=== PATIENT | female | born 1945 | race Caucasian/White ===

== ENCOUNTER 2024-08-01 13:03 | Emergency (ER) | payer OTHER, MEDICAID, SELFPAY ==
[2024-08-01 13:18] VITALS: BP 118/56; PULSE 84; RESP 18; TEMP 36.3; O2SAT 98
--- NOTE | 2024-08-01 13:46 | PD.EDRME ---
Rapid Medical Screening Exam RME Arrival date/time: 08/01/24 13:03 79yo f with c/o of ankle/hand swelling and pain, no trauma I have greeted and performed a focused initial assessment of this patient. A comprehensive ED assessment and evaluation of the patient, analysis of all test results, and completion of the medical decision making process will be conducted by additional ED providers. Chief Complaint: General Adult/Misc Complain Time Seen by Provider: 08/01/24 13:22 Vital signs: Vital Signs Temperature 97.4 F 08/01/24 13:18 Pulse Rate 84 08/01/24 13:18 Respiratory Rate 18 08/01/24 13:18 Blood Pressure 118/56 L 08/01/24 13:18 Pulse Oximetry (%) 98 08/01/24 13:18 Oxygen Delivery Method Room Air 08/01/24 13:18
--- NOTE | 2024-08-01 13:47 | XR_ITS ---
EXAMINATION: Ankle, right INDICATION: Trauma . Technique: Ankle AP, oblique, lateral 3 views Date and time of exam: 08/01/2024, 1:55 PM COMPARISON: None FINDINGS: No evidence of fracture or dislocation. Minimal degenerative changes in the tibiotalar joint. Small enthesophyte at Achilles tendon insertion site No evidence of soft tissue abnormality or foreign body. IMPRESSION: No acute bony abnormality. Mild degenerative changes as above.
[2024-08-01 14:15] LABS: Basophils % (Auto) 0 % (0-2.5); Eosinophils # (Auto) 0.4 Thou/mm3 (0.0-0.5); Eosinophils % (Auto) 7 % (0-10); Hematocrit 30.6 % (36.0-46.0); Hemoglobin 9.2 g/dL (12.0-16.0); Immature Granulocytes % (Auto) 0 % (0-0); Lymphocytes % (Auto) 54 % (10-50); Mean Corpuscular HGB Conc 30.1 g/dl (31.0-37.0); Mean Corpuscular Hemoglobin 21.3 pg (25.0-35.0); Mean Corpuscular Volume 71 fL (80-100); Monocytes # (Auto) 0.6 Thou/mm3 (0.0-0.8); Monocytes % (Auto) 11 % (0-12); Neutrophils # (Auto) 1.6 Thou/mm3 (1.8-7.7); Neutrophils % (Auto) 29 % (37-80); Nucleated Red Blood Cell % 0 /100 WBC (0); Platelet Count 307 Thou/mm3 (140-440); RDW Standard Deviation 44.7 fL (36.4-46.3); Red Blood Count 4.32 Miln/mm3 (4.00-5.20); White Blood Count 5.5 Thou/mm3 (3.6-11.0)
[2024-08-01 14:30] LABS: Alanine Aminotransferase 23 U/L (10-49); Albumin, Serum 3.7 gm/dL (3.4-4.8); Albumin/Globulin Ratio 1.6 (1.2-2.2); Alkaline Phosphatase 92 U/L (46-116); Anion Gap 9 (7-16); Aspartate Amino Transferase 14 U/L (0-34); BUN/Creatinine Ratio 17 Ratio (12-20); Bilirubin,Total 0.2 mg/dL (0.3-1.2); Blood Urea Nitrogen 12 mg/dL (9-23); C-Reactive Protein 1.7 mg/dL (0.0-0.9); Calcium 8.5 mg/dL (8.3-10.6); Calcium (Corrected) 8.7 mg/dL (8.5-10.1); Carbon Dioxide 23.9 mMol/L (20.0-31.0); Chloride 110 mMol/L (98-107); Creatinine (Component) 0.7 mg/dL (0.6-1.3); Globulin 2.3 gm/dL (2.3-3.5); Glucose 110 mg/dL (74-106); Osmolality,Calculated 285 (275-295); Potassium 3.8 mMol/L (3.4-5.1); Sodium 143 mMol/L (136-145); Uric Acid 3.6 mg/dL (3.1-7.8); eGFR > 60 See Note
[2024-08-01 14:41] LABS: Sed Rate (ESR) 36 mm/hr (0-30)
--- NOTE | 2024-08-01 16:03 | PC.NURSE ---
no answer x 1 at 1604
[2024-08-01] MEDS: MELOXICAM 7.5 MG TABLET PO (16:36)
--- NOTE | 2024-08-01 17:36 | PD.EDADULT ---
ED General RME/HPI General Chief complaint: General Adult/Misc Complain Stated complaint: SWOLLEN RIGHT HAND AND FOOT Time Seen by Provider: 08/01/24 13:22 Arrival date/time: 08/01/24 13:03 79 year old female present to emergency room with c/o of lower leg edema and hand swelling for a few days. pt report possible irriation from bug spray. LOCATION: leg/hands SEVERITY: Symptoms are described as being severe with limitations on activities of daily living QUALITY: Symptoms are described as being dull or achy CONTEXT: none DURATION/TIMING: The symptoms started approximately 2 days ago and have been constant this then. ASSOCIATED SYMPTOMS: The patient is unable to identify any other associated symptoms. MODIFYING FACTORS: The patient is unable to identify any alleviating or aggravating symptoms. PERTINENT ROS: no fevers, no headache, no neck or chest pain, no unexplained nausea or vomiting, no focal neurological deficits REVIEW OF SYSTEMS: See History of Present Illness - with the exception of those mentioned in the history of present illness, all other systems reviewed and reported as negative GENERAL: In general the patient is awake, interactive, in an emergency department gurney. HEAD/EYES/EARS/NOSE/THROAT: normo-cephalic, atraumatic, mucus membranes are moist, anicteric, palpebral conjunctiva is pink, trachea is midline. CARDIOVASCULAR: regular rate and regular rhythm, no murmurs, heart sounds are not distant, strong pulses in all four extremities that are equal and symmetric bilateral upper and lower extremities, normal capillary refill. CHEST/PULMONARY: normal chest rise and fall, good air movement, clear to auscultation bilaterally, normal inspiratory to expiratory ratios without evidence of respiratory distress. NECK: No midline/Paraspinal tenderness, no step off ROM/Strenght intact No Kernig and bruzinski sign. No trauma ABDOMEN: soft, not tender, no masses appreciated BACK: normal range of motion without pain. NEUROLOGICAL: cranio-facial features are symmetric, moves all four extremities equally without obvious limitations or weakness. EXTREMITY: no tenderness to palpation over the long bones or large joints of the bilateral upper and lower extremities, no joint swelling, no joint erythema, no signs of trauma, no unilateral leg swelling and no peripheral edema. SKIN: warm, dry, well-perfused, no jaundice, no rash, no telangiectasias or petechia. PSYCH: calm, cooperative, no evidence of psychosis or agitation RME / HPI RME / HPI narrative: 08/01/24 13:03 79yo f with c/o of ankle/hand swelling and pain, no trauma I have greeted and performed a focused initial assessment of this patient. A comprehensive ED assessment and evaluation of the patient, analysis of all test results, and completion of the medical decision making process will be conducted by additional ED providers. Related Data Allergies Allergy/AdvReac Type Severity Reaction Status Date / Time NKA* Allergy Uncoded 08/01/24 13:07 Course Course Course Narrative: Patient presenting with extremities swelling.? Also considered cellulitis, abscess, lymphedema, superficial thrombophlebitis, irritant dermatitis, oa however these were not consistent with presentation. pt decline US however denies any hx of dvt/pe/ This finding was discussed with the patient.? At this time, most likely diagnosis is edema extremities, denies any pain Symptomatic care was discussed.? I advised elevation above the heart.? An Bernardo wrap was applied.?? I have instructed the patient to return to the ER at any time if there are any new or worsening symptoms including uncontrolled pain, fever, shortness of breath, chest pain.? The patient expressed understanding of and agreement with this plan.? Opportunity was given for questions prior to discharge and all stated questions were answered to the patient's satisfaction.? Home care instructions provided.? Patient remained hemodynamically stable through ED course and was discharged home without event.? Quality Measures none Orders Category Date Time Status XR ankle comp RT min 3V Stat Exams 08/01/24 13:47 Completed CBC Stat Lab 08/01/24 13:55 Completed CMP [Comprehensive Metabolic Panel] Stat Lab 08/01/24 13:55 Completed CRP [C-Reactive Protein] Stat Lab 08/01/24 13:55 Completed ESR [Sed Rate (ESR)] Stat Lab 08/01/24 13:55 Completed Uric Acid Stat Lab 08/01/24 13:55 Completed Meloxicam [Mobic] Med 08/01/24 15:59 Discontinued 7.5 mg PO X1 ONE Vital Signs Vital signs: Vital Signs Temperature 97.4 F 08/01/24 13:18 Pulse Rate 84 08/01/24 13:18 Respiratory Rate 18 08/01/24 13:18 Blood Pressure 118/56 L 08/01/24 13:18 Pulse Oximetry (%) 98 08/01/24 13:18 Oxygen Delivery Method Room Air 08/01/24 13:18 [facility] Patient data External records reviewed:: None Clinical information provided by:: patient Social determinants that could affect healthcare access:: none Patient has the following chronic illnesses:: as stated in chart How is presenting disease/condition affected by chronic disease/condition?: uneffected by Evaluation data The following diagnostics were reviewed and interpreted by me:: lab results and radiology exam(s) Lab and/or radiology exams considered but not ordered:: n/a Interpretation Summary: cbc/cmp no acute findings crp/esr elevated uric acid wnl Medications Medications considered but not ordered:: n/a Medication administrations:: Medication Administration History Discontinued Medications Meloxicam (Meloxicam 7.5 Mg Tablet) 7.5 mg PO X1 ONE Stop: 08/01/24 16:00 Last Admin: 08/01/24 16:36 Dose: 7.5 mg Documented By: KF as state above Consultations Consultation(s) initiated? (list below): No Diagnosis Differential Diagnosis ED Complaint MDM: gout, oa, kidney injury, fracture , dvt Most likely diagnosis given after review of the tests above:: extremities swelling Admission Indicated Admission indicated?: not indicated Explain why admission is indicated or not indicated:: not Admission Request Was there a request for admission?: No Disposition Plan Disposition Plan: Discharge Discharge Attestation Discharge Attestation: The patient and all family members were given an opportunity to ask questions and understood the discharge instructions. Discharge instructions specifically effects, indications for sooner follow up or return to the emergency department, and the expected course of current diagnosis. Patient condition: Stable Medical Decision Making Differential Diagnosis Differential Diagnosis: gout, oa, kidney injury, fracture , dvt Lab Data 08/01/24 13:55 08/01/24 13:55 Labs: Lab Results 08/01/24 Range/Units 13:55 WBC 5.5 (3.6-11.0) Thou/mm3 RBC 4.32 (4.00-5.20) Miln/mm3 Hgb 9.2 L (12.0-16.0) g/dL Hct 30.6 L (36.0-46.0) % MCV 71 L (80-100) fL MCH 21.3 L (25.0-35.0) pg MCHC 30.1 L (31.0-37.0) g/dl RDW Std Deviation 44.7 (36.4-46.3) fL Plt Count 307 (140-440) Thou/mm3 Neut % (Auto) 29 L (37-80) % Lymph % (Auto) 54 H (10-50) % [place] % (Auto) 11 (0-12) % Eos % (Auto) 7 (0-10) % Baso % (Auto) 0 (0-2.5) % Neut # (Auto) 1.6 L (1.8-7.7) Thou/mm3 Lymph # (Auto) 3.0 (1.0-4.8) Thou/mm3 [place] # (Auto) 0.6 (0.0-0.8) Thou/mm3 Eos # (Auto) 0.4 (0.0-0.5) Thou/mm3 Baso # (Auto) 0.0 (0.0-0.2) Thou/mm3 Immature Gran # (Auto) 0.00 (0.00-0.00) Thou/mm3 Absolute Nucleated RBC 0.00 (0.00-0.00) Thou/mm3 Immature Gran % 0 (0-0) % Nucleated RBC % 0 (0) /100 WBC ESR 36 H (0-30) mm/hr Sodium 143 (136-145) mMol/L Potassium 3.8 (3.4-5.1) mMol/L Chloride 110 H (98-107) mMol/L Carbon Dioxide 23.9 (20.0-31.0) mMol/L Anion Gap 9 (7-16) BUN 12 (9-23) mg/dL Creatinine 0.7 (0.6-1.3) mg/dL Estim Creat Clear Calc Not Performed. eGFR > 60 (60 - ) See Note BUN/Creatinine Ratio 17 (12-20) Ratio Glucose 110 H (74-106) mg/dL Calculated Osmolality 285 (275-295) Uric Acid 3.6 (3.1-7.8) mg/dL Calcium 8.5 (8.3-10.6) mg/dL Corrected Calcium 8.7 (8.5-10.1) mg/dL Total Bilirubin 0.2 L (0.3-1.2) mg/dL AST 14 (0-34) U/L ALT 23 (10-49) U/L Alkaline Phosphatase 92 (46-116) U/L C-Reactive Prot, Quant 1.7 H (0.0-0.9) mg/dL Total Protein 6.0 (5.7-8.2) gm/dL Albumin 3.7 (3.4-4.8) gm/dL Globulin 2.3 (2.3-3.5) gm/dL Albumin/Globulin Ratio 1.6 (1.2-2.2) Discharge Plan Plan Patient Disposition: HOME (Self Care) Health Concerns: Follow up with PCP as directed Return to ED if symptoms worsen Prescriptions/Referrals Referrals: Sg Mosquera MD [Primary Care Provider] - In 1 week Problem List Clinical Impression: Edema of extremities Patient/Caregiver Discharge Instructions Education Materials: ED Leg Swelling in Both Legs Print Language: Italian Stand Alone Forms: [employer] Award Info., Patient Portal Info Letter
== END 2024-08-01 18:30 | disposition home or self-care (01) ==
PROVIDERS: Physician Assistant; Emergency Provider Emergency Medicine; PCP Family Medicine
DX: R60.0 Localized edema (principal)
CPT/HCPCS: 36415; 73610; 80053; 84550; 85025; 85652; 86140; 99283; A9270

== ENCOUNTER 2025-01-07 05:32 | Emergency (ER) | payer OTHER, MEDICAID, SELFPAY ==
[2025-01-07] VITALS (12 sets, daily range): BP systolic 101–137; BP diastolic 56–83; PULSE 62–81; RESP 14–19; TEMP 36.6–37.2; O2SAT 97–100; BMI 19.5
--- NOTE | 2025-01-07 06:13 | XR_ITS ---
Examination: Venous duplex lower extremity sonogram, bilateral. Date and time of exam: January 07, 2025 0741 hours INDICATIONS: Right leg swelling and pain beginning 3 days ago. Technique: Multiple sonographic images of the deep venous system have been obtained. B-mode/2-D grayscale imaging of vascular structures and Doppler spectral analysis (waveforms) and color performed Both legs are examined. Findings: Deep venous systems do not demonstrate abnormal echogenicity. All visualized deep veins exhibit compressibility. All visualized deep veins exhibit augmentation. Impression: Negative for deep vein thrombosis
--- NOTE | 2025-01-07 06:16 | EDNOTE_ITS ---
<Statement entered by Lizzy Nathan MD - 01/08/25 15:29> I, Lizzy Nathan MD, have reviewed the history, exam, and assessment of the patient. I have evaluated the patient independently and agree with the plan of care documented by [ ]. All diagnostic studies were reviewed and discussed. I confirm the diagnosis as documented by the Resident. I was present during the Medical Decision Making for this patient. The patient's plan of care was created between myself and the Resident and consistent with our discussion of the patient's case. ED General RME/HPI General Chief complaint: Weakness Stated complaint: WEAKNESS Time Seen by Provider: 01/07/25 05:51 Arrival date/time: 01/07/25 05:32 RME / HPI RME / HPI narrative: 79-year-old female with history of rheumatoid arthritis comes into the ER brought in by ambulance due to severe weakness. Patient states that she has been feeling very weak for the past 3 months. She has been unable to get up from her bed last month and she called her nephew who was send his son to help her stand up. Today she had another episode where she could not get up from her bed as she was feeling too weak. She says that she has been losing weight and she is not able to take care of herself as she gets really tired with minimal exertion and minimal daily activities. She does not endorse any falls recently, syncopal episode, loss of conscious, chest pain, shortness of breath, nausea, vomiting, abdominal pain, change in bowel movement, or burning sensation urination. Otherwise she has no other complaints at this time. Related Data Allergies Allergy/AdvReac Type Severity Reaction Status Date / Time NKA* Allergy Uncoded 01/07/25 05:40 Review of Systems Review of Systems Systems Reviewed: All systems reviewed, normal except as documented Past Medical History Past Medical History Comments PMH COMMENT: PMH: Rheumatoid arthritis Social Hx: Denies smoking, drugs, alcohol Lives alone and has a granddaughter who lives in town and a nephew. ED Exam Narrative Physical exam: Gen: A&O X 3, thin and frail, temporal wasting HEENT: NCAT, EOMI, Pupils reactive COLLEEN, not icteric. External ears normal. No rhinorrhea. Dry mucous membranes. Neck: Supple, full range of motion, no observable masses, No meningeal sign. Lungs: No Respiratory distress, clear bilateral. CV: RRR, no murmurs. Abdomen: Soft, nondistended, No rebound tenderness. MSK: No joint swelling, no redness, peripheral pulses presents, right ankle and foot swollen and mildly warm and tender to palpation on the medial and lateral aspect of the posterior ankle. Strength bilateral upper and lower extremities are 3 out of 5. Skin: No rashes, petechiae, lesions. Neuro: No focal neurological deficits appreciated, sensory and motor intact. Psych: Cooperative, appropriate mood and effect. Course Quality Measures none Orders Category Date Time Status Hiv Counselor Q4H START 00 Care 01/07/25 06:15 Active Continuous Pulse Oximetry NOW Care 01/07/25 06:15 Completed EKG (ED ONLY) *Do not use* NOW Care 01/07/25 05:44 Completed Nurse Swallow Screen X1 Care 01/07/25 16:26 Active PT [Referral Physical Therapy] Stat Cons 01/07/25 09:38 Completed Diet Regular Diet 01/07/25 Dinner Active EKG (ED Only) Stat Exams 01/07/25 05:44 Ordered US venous doppler LE BI Stat Exams 01/07/25 06:13 Completed XR ankle RT 2V Stat Exams 01/07/25 06:22 Completed XR foot comp RT min 3V Stat Exams 01/07/25 06:21 Completed CBC Stat Lab 01/07/25 06:40 Completed CMP [Comprehensive Metabolic Panel] Stat Lab 01/07/25 06:40 Completed Drug Screen,Urine Stat Lab 01/07/25 06:39 Completed Lactic Acid [Lactate (Lactic Acid)] Stat Lab 01/07/25 06:40 Completed Procalcitonin Stat Lab 01/07/25 06:40 Completed UA [Urinalysis] Stat Lab 01/07/25 06:39 Completed Vital Signs Vital signs: Vital Signs Temperature 98.1 F 01/07/25 05:35 Pulse Rate 81 01/07/25 05:35 Respiratory Rate 17 01/07/25 05:35 Blood Pressure 117/67 01/07/25 05:35 Pulse Oximetry (%) 97 01/07/25 05:35 Oxygen Delivery Method Room Air 01/07/25 05:35 Discharge Plan Plan Patient Disposition: Xfer Skilled Nsg Fac (SNF) Prescriptions/Referrals Referrals: No Primary/Family,Physician [Primary Care Provider] - In 1 week Problem List Clinical Impression: Generalized weakness Patient/Caregiver Discharge Instructions Other Activity Instructions:: Follow-up primary care physician within 5 days Would recommend further workup for generalized weakness by primary care physician and outpatient physical therapy. Come back to the ED if symptoms persist or worsen. Education Materials: ED Weakness (Uncertain Cause) Print Language: Citizen Of [place] Stand Alone Forms: Yisel Award Info., Patient Portal Info Letter MDM Narrative [facility] hospital course: Patient was seen and examined at bedside by myself upon arrival. Diagnostic labs and imaging were ordered at this time. 9:10 Patient's blood work did not show any spiking WBCs or fevers. Imaging did not show any DVTs on the lower extremities and no fractures on the right foot or ankle. 9: 30: Spoke with social contact worker for possible need of placement for patient at a retirement facility. Ordered physical therapy evaluation. 10:00: Spoke with IM team for possible admission. Stated patient does not meet inpatient criteria. 11: 44: Notified that patient will be going to [facility] for placement. Pending PT eval. 12:40: PT evaluation done recommended SNF. 16:16: Patient still pending placement. Resting in bed. 18:00: Patient care signed off to pleat taper physician, Dr. Jacobson. Case disclosed with Attending Dr. Venita Lares PGY2 Disclaimer: Even though this this note was dictated by speech recognition and even though it was carefully revised there may still be minor errors in learning and development manager due to voice recognition software.
--- NOTE | 2025-01-07 06:21 | XR_ITS ---
Examination: Foot, right, 3 views Technique: AP, oblique, lateral views foot, 3 views Date and time of exam: January 07, 2025 0704 hours INDICATIONS: Foot swelling and pain this week. FINDINGS: Severe osteopenia. No acute fracture. No foreign body. No cortical bone destruction IMPRESSION: Severe osteopenia No fracture or cortical bone destruction
--- NOTE | 2025-01-07 06:22 | XR_ITS ---
Examination: Right ankle 2 views Technique one AP lateral right ankle 2 views Date and time: January 07, 2025 0708 hours INDICATIONS: Ankle swelling this week. FINDINGS: Severe osteopenia. Bimalleolar soft tissue swelling. No fracture. No cortical bone destruction IMPRESSION: No fracture or cortical bone destruction.
--- NOTE | 2025-01-07 06:34 | PC.NURSE ---
pt bib with c/o weakness. per pt she was dx with rheumatoid arthritis recently, and has felt weaker for the past 3 months. pt states she is unable to do her activities of daily living such as cook, use her microwave due to increase weakness, and pain to hands. pt states she lives alone and needs assistance with adls. pt a/ox3 gcs 15. pt placed on vital monitoring. call light within reach. bed at lowest position.
[2025-01-07 07:01] LABS: Collection Type, Urine Catheter
[2025-01-07 07:02] LABS: Lactate (Lactic Acid) 1.4 mMol/L (0.4-2.0)
[2025-01-07 07:23] LABS: Amphetamine/Methamp Scrn,U Negative (Negative); Barbiturate Screen,Urine Negative (Negative); Benzodiazepines Screen,Urine Negative (Negative); Benzoylecgonine Screen, Ur Negative (Negative); Fentanyl Screen,Urine Negative (Negative); Opiate Screen,Urine Negative (Negative); THC Screen,Urine Negative (Negative)
[2025-01-07 07:28] LABS: Basophils # (Auto) 0.0 Thou/mm3 (0.0-0.2); Basophils % (Auto) 1 % (0-2.5); Eosinophils # (Auto) 0.2 Thou/mm3 (0.0-0.5); Eosinophils % (Auto) 3 % (0-10); Hematocrit 30.2 % (36.0-46.0); Hemoglobin 9.4 g/dL (12.0-16.0); Immature Granulocytes Auto 0.02 Thou/mm3 (0.00-0.00); Lymphocytes # (Auto) 2.2 Thou/mm3 (1.0-4.8); Lymphocytes % (Auto) 37 % (10-50); Mean Corpuscular HGB Conc 31.1 g/dl (31.0-37.0); Mean Corpuscular Hemoglobin 23.4 pg (25.0-35.0); Mean Corpuscular Volume 75 fL (80-100); Monocytes # (Auto) 0.8 Thou/mm3 (0.0-0.8); Monocytes % (Auto) 14 % (0-12); Neutrophils # (Auto) 2.7 Thou/mm3 (1.8-7.7); Neutrophils % (Auto) 45 % (37-80); Nucleated Red Blood Cell # 0.00 Thou/mm3 (0.00-0.00); Nucleated Red Blood Cell % 0 /100 WBC (0); Platelet Count 404 Thou/mm3 (140-440); RDW Standard Deviation 51.3 fL (36.4-46.3); Red Blood Count 4.02 Miln/mm3 (4.00-5.20); White Blood Count 6.0 Thou/mm3 (3.6-11.0)
[2025-01-07 07:34] LABS: Alanine Aminotransferase < 7 U/L (10-49); Albumin, Serum 3.3 gm/dL (3.4-4.8); Albumin/Globulin Ratio 1.6 (1.2-2.2); Alkaline Phosphatase 89 U/L (46-116); Anion Gap 11 (7-16); Aspartate Amino Transferase < 10 U/L (0-34); BUN/Creatinine Ratio 16 Ratio (12-20); Bilirubin,Total 0.3 mg/dL (0.3-1.2); Blood Urea Nitrogen 8 mg/dL (9-23); Calcium 8.7 mg/dL (8.3-10.6); Calcium (Corrected) 9.3 mg/dL (8.5-10.1); Carbon Dioxide 22.5 mMol/L (20.0-31.0); Chloride 108 mMol/L (98-107); Creatinine (Component) 0.5 mg/dL (0.6-1.3); Estimated Creatinine Clearance 74.2 mL/min (>60); Globulin 2.1 gm/dL (2.3-3.5); Glucose 105 mg/dL (74-106); Osmolality,Calculated 279 (275-295); Potassium 3.7 mMol/L (3.4-5.1); Procalcitonin 0.50 ng/ml (0.0-0.49); Sodium 141 mMol/L (136-145); Total Protein 5.4 gm/dL (5.7-8.2); eGFR > 60 See Note
[2025-01-07 08:56] LABS: Bilirubin,Urine Negative (Negative); Blood,Urine Negative (Negative); Clarity,Urine Clear (Clear/Hazy); Color,Urine Yellow (Lt Yel-Yel); Glucose, Urine Negative (Negative); Ketones,Urine Negative (Negative); Nitrite,Urine Negative (Negative); PH,Urine 6.5 (5.0-7.0); Protein,Urine Negative (Neg - Trace); Specific Gravity,Urine 1.010 (1.001-1.035); Urobilinogen,Urine 0.2 mg/dL (0.0-1.0)
[2025-01-07 08:57] LABS: Leukocyte Esterase,Urine 2+ (Negative)
[2025-01-07 08:58] LABS: Bacteria,Urine 1+; RBC,Urine 3 /hpf (0-3); Squamous Epithelial Cell,Urine 2 /hpf (0-5); WBC,Urine 5 /hpf (0-5)
--- NOTE | 2025-01-07 10:12 | PC.NURSE ---
social professionals in room speaking to patient at this time.
--- NOTE | 2025-01-07 10:32 | PC.CC ---
Patient is a 79 year-old female who presents to the hospital for generalized weakness. NEON ELECTRICIANLydia made [id number] contact with patient. ASW introduced self, role, and reason for visit.?Patient appeared alert and oriented to self, location, and situation.?NEON ELECTRICIAN discussed limits of confidentiality. Patient was pleasant and engaged in initial assessment. Patient confirmed her address on demographics and reports to living alone. Patient reports her next of kin is her daughter Lindy Meraz . Patient reports at home she uses a walker and cane to ambulate but has been having difficulty due to generalized weakness. Patient was able to complete her ADLs but has been struggling. Patient reports she receives primary care with [facility] on [address]. Her pharmacy of choice is [facility]. Patient does not require any oxygen or other DME. Patient would like to go to SNF upon discharge. NEON ELECTRICIAN to send referral to SNF Facilities via [facility]. Dr. Arboleda ordered a PT Eval. PASSR will be completed.
--- NOTE | 2025-01-07 10:48 | PC.CC ---
Lydia ALARCON completed PASSR and sent referral to local SNF for placement. PT Eval is pending.
--- NOTE | 2025-01-07 11:29 | PC.CC ---
Helga with [facility] asked if it was okay to come and speak to the patient. PARTS SALESPERSON asked the patient if it was okay if someone from [facility] came to speak to her and she stated yes. PARTS SALESPERSON updated Helga that patient was receptive.
--- NOTE | 2025-01-07 11:41 | PC.CC ---
Lydia ALARCON made face to face contact with patient. Patient reports she is receptive to going to [facility]. POWDER LOADER booked on [employer] and Helga has started auth for insurance. PT is pending.
--- NOTE | 2025-01-07 12:38 | PC.PT ---
PT eval complete. Please refer to eval for further details.
--- NOTE | 2025-01-07 12:39 | PC.CC ---
Lydia ALARCON was informed that PT eval was completed by [facility]. AGNES sent PT Eval to Hlega from [facility] and she is working on authorization.
--- NOTE | 2025-01-07 12:45 | PC.SS ---
SS follow up note; SS sent PT evaluation note to [facility] through [employer] platform.
--- NOTE | 2025-01-07 18:09 | EDNOTE_ITS ---
Emergency Room Addendum <Sera Huang - Last Filed: 01/08/25 01:04> Addendum Narrative: I took over the care from previous shift physician at 6 PM on 01/07/2025. See previous notes for complete H & P and ED course. I reviewed all diagnostic test results. My interpretation of the EKG is My interpretation of the left foot x-ray is NAD. My interpretation of the left ankle x-ray is NAD. My review of the Venous Doppler report is NAD. Blood tests and urine tests Diagnoses include: Edema of extremities. Treatment here included IVF, Maxipime 2 G. Patient pending transfer to [facility]. Earl Jacobson MD <Earl Jacobson MD - Last Filed: 01/08/25 01:44> Addendum Narrative: I took over the care from previous shift physician, Dr. Arboleda (attending Dr. Nathan) at 6 PM on 01/07/2025. See previous notes for complete H & P and ED course. I reviewed all diagnostic test results. Diagnoses include: Failure to thrive and UTI. Treatment here included IVF and ABX. Patient pending transfer to [facility]. At 6 AM on 01/08/2025, the care of the patient was transferred to Dr. NATHAN. During my watch, the patient remained stable. Earl Jacobson MD
[2025-01-07] MEDS: CEFEPIME INJ 2 GM in SODIUM CHLORIDE 0.9% (Popper) 50 ML IV (22:11)
[2025-01-07] MEDS: SODIUM CHLORIDE 0.9% 1000 ML 1,000 ML 999 ML IV (22:12)
[2025-01-08 01:00] VITALS: BP 110/69; PULSE 75; RESP 23; O2SAT 98
[2025-01-08 04:10] VITALS: BP 106/62; PULSE 69; RESP 15; O2SAT 98
[2025-01-08 06:29] VITALS: BP 112/57; PULSE 74; RESP 18; TEMP 36.7; O2SAT 98
[2025-01-08 09:05] VITALS: BP 127/68; PULSE 81; RESP 18; TEMP 36.7; O2SAT 98
--- NOTE | 2025-01-08 11:43 | PC.CC ---
PRECISION AIRCRAFT STRUCTURE ASSEMBLER, Lydia made telephone contact with Helga at [facility] who reports auth is still pending and provided insurance contact [facility] Nurse manager case [phone]. PRECISION AIRCRAFT STRUCTURE ASSEMBLER made telephone contact with [facility] no answer left voicemail. Helga reports she will reattempt. PRECISION AIRCRAFT STRUCTURE ASSEMBLER, made face to face contact with patient to provide update of insurance auth still pending.
--- NOTE | 2025-01-08 13:30 | PC.CC ---
EMERGENCY ROOM CLERK, spoke to Vianca with [facility] who reports insurance is asking for SNF order. EMERGENCY ROOM CLERK faxed SNF Order and PT Eval to [facility] at [phone]. Vianca reports she resubmitted the clinicals to them as well. Waiting for Auth
[2025-01-08] MEDS: ACETAMINOPHEN 325 MG TABLET 650 MG PO (14:58)
[2025-01-08 15:21] VITALS: BP 121/81; PULSE 72; RESP 20; TEMP 36.6; O2SAT 100
--- NOTE | 2025-01-08 16:33 | PC.CC ---
received call from Gabe, needs to speak to MARIO in ER for an this ER patient. transferred call to [facility] Freeman
--- NOTE | 2025-01-08 16:41 | PC.CC ---
CLAIMS SORTER, Lydia received a call from Ryan with [facility] who requested Clinicals to be resent. He provided fax number [phone]. Ryan reports they are trying to provide authorization by this evening. He provided after hours number and . [facility] to follow up.
--- NOTE | 2025-01-08 17:23 | PC.CC ---
Lydia ALARCON obtained auth for patient from [place] authorization number [id number]. CHEMICAL MIXER, provided patient with update. CHEMICAL MIXER provided update to medical team. CHEMICAL MIXER to arrange transportation via [employer].
--- NOTE | 2025-01-08 17:55 | PC.NURSE ---
REPORT CALLED TO JELANI AT [facility]. NO FURTHER QUESTIONS.
[2025-01-08 18:13] VITALS: BP 118/88; PULSE 69; RESP 22; TEMP 36.4; O2SAT 100
== END 2025-01-08 18:50 | disposition skilled nursing facility (03) ==
PROVIDERS: Emergency Provider Emergency Medicine
DX: N39.0 Urinary tract infection, site not specified (principal); R62.7 Adult failure to thrive; M25.471 Effusion, right ankle; M79.89 Other specified soft tissue disorders; M79.604 Pain in right leg; Z68.1 Body mass index [BMI] 19.9 or less, adult
CPT/HCPCS: 36415; 73600; 73630; 80053; 80307; 81001; 83605; 84145; 85025; 93005; 93970; 96361; 96365; 99284; J0692; J7030; J7050; A9270